=== PATIENT | female | born 1955 | race Caucasian/White ===

== ENCOUNTER 2018-09-21 20:51 | Emergency (ER) | payer BC ==
--- NOTE | 2018-09-21 20:58 | Emergency Department Record ---
History of Present Illness - General Chief Complaint: Dizziness Stated Complaint: DIZZY Time Seen by Provider: 09/21/18 20:57 Source: Patient Mode of Arrival: Ambulatory Limitations: No limitations - History of Present Illness Initial Comments: 62 yo female presents with dizziness. She states she has had diarrhea for about a week. She was feeding her kitten tonight and turned and felt a sudden room spinning feeling. No headache, No vision loss, no speech or vision trouble , no weakness or coordination changes. No vomiting. The symptoms have improved significantly since the once. MD Complaint: Dizziness -: Minutes(s) Timing: Gradual onset Description: "Room spinning" History of Same: No History of Trauma: No Severity: Moderate Improves With: Remaining still Worsens With: Nothing Associated Symptoms: Other (Diarrhea for one week) - [place] Coma Scale Eye Response: (4) Open spontaneously Motor Response: (6) Obeys commands Verbal Response: (5) Oriented Mariano Total: 15 - Related Data Home Medications Medication Instructions Recorded Confirmed Last Taken Acetaminophen [Tylenol 325Mg] 650 mg PO Q6H PRN 09/21/18 09/21/18 Unknown Allergies Allergy/AdvReac Type Severity Reaction Status Date / Time No Known Drug Allergies Allergy Verified 09/21/18 20:55 Review of Systems Constitutional: Denies: Chills, Fever, Malaise, Weakness Eyes: Denies: Eye discharge, Eye pain, Photophobia, Vision change ENT: Denies: Congestion, Ear pain, Epistaxis, Throat pain Respiratory: Denies: Cough, Dyspnea, Hemoptysis, Wheezes Cardiovascular: Denies: Chest pain, Palpitations, Syncope Endocrine: Denies: Fatigue, Polydipsia, Polyuria Gastrointestinal: Reports: Diarrhea. Denies: As per HPI, Abdominal pain, Nausea , Vomiting Genitourinary: Denies: Dysuria Musculoskeletal: Denies: Arthralgia, Back pain, Myalgia Skin: Denies: Bruising, Change in color, Rash Neurological: Reports: Vertigo. Denies: Abnormal gait, Confusion, Headache, Numbness, Seizure, Tingling, Tremors, Weakness Psychiatric: Denies: Anxiety Hematological/Lymphatic: Denies: Blood Clots, Easy bleeding, Easy bruising, Swollen glands Physical Exam - General General Appearance: Alert, Oriented x3, Cooperative, No acute distress Limitations: No limitations - Head Head exam: Atraumatic, Normocephalic, Normal inspection - Eye Eye exam: Normal appearance, PERRL, EOMI. negative: Conjunctival injection, Nystagmus, Periorbital swelling, Periorbital tenderness, Scleral icterus - ENT ENT exam: Normal exam, Mucous membranes moist Ear exam: Normal external inspection Nasal Exam: Normal inspection Mouth exam: Normal external inspection Teeth exam: Normal inspection Throat exam: Normal inspection - Neck Neck exam: Normal inspection - Respiratory Respiratory exam: Normal lung sounds bilaterally. negative: Respiratory distress - Cardiovascular Cardiovascular Exam: Regular rate, Normal rhythm, Normal heart sounds. negative : Diastolic murmur, Systolic murmur Peripheral Pulses: 2+: Radial (R), Radial (L) - GI/Abdominal GI/Abdominal exam: Soft. negative: Tenderness - Rectal Rectal exam: Deferred - exam: Deferred - Extremities Extremities exam: Normal inspection, Full ROM. negative: Joint swelling, Pedal edema, Tenderness - Back Back exam: Denies: CVA tenderness (R), CVA tenderness (L) - Neurological Neurological exam: Alert, Oriented X3 - Psychiatric Psychiatric exam: Normal affect, Normal mood. negative: Agitated, Anxious - Skin Skin exam: Dry, Intact, Normal color, Warm Course - Reevaluation(s) Reevaluation #1: EKG #1: 21:10 Rate: 63 Rhythm: sinus [place]: leftward Intervals: normal ST segments: normal Prior: none 09/21/18 22:03 09/21/18 22:04 The labs results were reviewed There are no acute significant abnormalities of the CBC There are no acute significant abnormalities of the CMP 09/21/18 22:49 HCT reviewed. No acute process. Some atrophy noted The patient is feeling much improved. She will be ambulated Medical Decision Making - Lab Data Result diagrams: 09/21/18 21:20 09/21/18 21:20 Disposition Disposition: Discharge Clinical Impression: Dizziness, Diarrhea Disposition: Home, Self-Care Condition: (1) Good Instructions: Acute Diarrhea (ED), Dizziness (ED) Additional Instructions: Call for a new family doctor Sunday Return to the ED if you have any return of your symptoms Stay well hydrated until the diarrhea is completely gone. Forms: Patient Portal Access Time of Disposition: 22:51 Quality - Quality Measures Quality Measures: N/A - Blood Pressure Screening Does Patient Have Any of the Following: No Blood Pressure Classification: Hypertensive Reading Systolic Measurement: 134 Diastolic Measurement: 91 Screening for High Blood Pressure: < Pre-Hypertensive BP, F/U Documented > [ [id number]] Pre-Hypertensive Follow-up Interventions: Referral to alternative/primary care provider.
[2018-09-21] MEDS ORDERED: MECLIZINE 25 MG TABLET PO ONE (21:05)
[2018-09-21] MEDS ORDERED: 0.9 % SODIUM CHLORIDE 1,000 ML BAG IV ONE (21:05)
[2018-09-21 21:28] LABS: BASO % 0.6 % (0-6); EOS % 1.1 % (0-6); GRAN % 71.9 % (47-80); HEMATOCRIT 38.2 % (35.0-47.0); HEMOGLOBIN 12.7 gm/dl (11.6-16.0); LYMPH % 18.9 % (16-45); MEAN CELL VOLUME 98.5 fl (81-97); MEAN CORPUSCULAR HEMOGLOBIN 32.7 pg (27-33); MEAN CORPUSCULAR HGB CONC 33.2 g/dl (32-36); MEAN PLATELET VOLUME 8.8 fl (7.4-10.4); MONO % 7.5 % (0-9); PLATELET COUNT 333 K/uL (130-400); RED BLOOD COUNT 3.88 M/uL (3.80-5.40); RED CELL DISTRIBUTION WIDTH 12.6 % (11.5-14.5); WHITE BLOOD COUNT W/O DIFF 10.1 K/uL (4.2-12.2)
[2018-09-21 21:38] LABS: BLOOD UREA NITROGEN 27 mg/dL (8-23); CREATININE 0.5 mg/dL (0.5-0.9); EST GLOMERULAR FILTRATION RATE > 60 mL/min
[2018-09-21 21:39] LABS: TOTAL PROTEIN 7.3 g/dL (6.6-8.7)
[2018-09-21 21:41] LABS: GLUCOSE,RANDOM 103 mg/dL (74-109)
[2018-09-21 21:44] LABS: ALB/GLOB RATIO 1.7 (1.1-1.8); ALBUMIN 4.6 g/dL (4.0-5.0); ALKALINE PHOSPHATASE 79 U/L (35-104); ALT/SGPT 17 U/L (<33); AST/SGOT 25 U/L (10.0-35.0)
--- NOTE | 2018-09-24 12:44 | CT SCAN REPORT ---
EXAM: CT OF THE HEAD WITHOUT CONTRAST HISTORY: DIZZY. TECHNIQUE: Noncontrast CT images of the brain were obtained. FINDINGS: There is mild atrophy. There is no evidence of hemorrhage, mass effect, midline shift, or acute transcortical infarction. No extraaxial fluid collections are seen. The ventricles are preserved. IMPRESSION: ATROPHY, OTHERWISE NEGATIVE. JOB NUMBER: [id number] MTDD
== END 2018-09-21 23:01 | disposition home or self-care (01) ==
LOC: ER 20:51
DX: R42 Dizziness and giddiness (principal); R19.7 Diarrhea, unspecified; R11.0 Nausea; F17.210 Nicotine dependence, cigarettes, uncomplicated
CPT/HCPCS: 70450; 80053; 85025; 93005; 93010; 99284; J7030

== ENCOUNTER 2019-01-16 12:50 | Day surgery (SDC) | payer BC ==
[2019-01-16] MEDS ORDERED: PROPOFOL 10 MG/ML VIAL IV ONE (12:51)
[2019-01-16] MEDS ORDERED: LIDOCAINE 2% MDV (20MG/ML) 20ML VIAL IV ONE (12:51)
[2019-01-16] MEDS ORDERED: FENTANYL PF 100MCG/2ML VIAL IV ONE (12:51)
--- NOTE | 2019-01-17 07:12 | Operative Note ---
OPERATION: 1. ESOPHAGOGASTRODUODENOSCOPY with biopsy. 2. COLONOSCOPY with random biopsy. PREOPERATIVE DIAGNOSIS: Diarrhea of unclear etiology and weight loss. POSTOPERATIVE DIAGNOSES: 1. Gastric scar. 2. Otherwise normal upper endoscopy, rule out celiac. 3. Normal colonoscopy, rule out microscopic colitis. PROCEDURE: After informed consent was obtained from the patient, she was placed in the left lateral decubitus position in the endoscopy suite, sedated and monitored by the department of anesthesia. A well-lubricated [id number] gastroscope was placed in the posterior oropharynx under direct visualization and passed to the proximal esophagus. The endoscope was advanced through the proximal, mid, and distal esophagus. The GE junction was mildly erythematous. The remainder of the esophagus, gastric body, antrum, pylorus, duodenal bulb and sweep were unremarkable. J-turn views of the proximal stomach were unrevealing. The endoscope was then straightened and advanced back to the duodenum where biopsies were obtained randomly to rule out occult celiac. Gastric scar was again identified. This appears to be the site of a previous ulcer and repair. The endoscope was retracted throughout the course of the proximal stomach and esophagus. No new findings or abnormalities identified. Digital rectal exam was unremarkable. A well-lubricated [id number] colonoscope was inserted into the rectum and advanced to the cecum. Preparation quality was excellent. The cecum, cecal bulb, ascending colon, transverse colon, descending colon, sigmoid colon, and rectum were free of inflammatory changes, mass lesions, or polyps. Forward and J-turn views of the rectum and anorectum were unremarkable. It is to be noted that random colonic biopsies were obtained throughout the right, left, and transverse colon. RECOMMENDATIONS: We will await the results of tissue histology. If this is unremarkable, then perhaps small bowel imaging would be helpful. Also would check a CRP and a fecal calprotectin. As always, thank you for allowing me to participate in the healthcare of your patients. RAFFI
== END 2019-01-16 14:43 | disposition home or self-care (01) ==
LOC: HOP 12:50
PROVIDERS: ATTEND Internal Medicine Gastroenterology
DX: R19.7 Diarrhea, unspecified (principal); R63.4 Abnormal weight loss; Z87.11 Personal history of peptic ulcer disease; K52.832 Lymphocytic colitis; L90.5 Scar conditions and fibrosis of skin